=== PATIENT | male | born 1945 | race Caucasian/White ===

== ENCOUNTER 2018-09-10 01:40 | Inpatient (IN) ==
[2018-09-10] MEDS ORDERED: SOLU-MEDROL IV ONE (02:03)
[2018-09-10 02:26] LABS: HEMATOCRIT 42.6 % (42.0-52.0); HEMOGLOBIN 14.2 g/dL (14.0-18.0); MCH 31.6 PG (27-31); MCHC 33.3 g/dL (33-37); PLT 151 X1000 (130-400); RDW 13.4 % (11.5-14.5)
[2018-09-10 02:36] LABS: BASO# 0.03 X1000 (0.0-0.2); BASO% 0.4 % (0.0-0.8); EOS# 0.25 X1000 (0.0-0.7); LYMPH# 1.65 X1000 (1.2-3.4); MCV 94.9 FL (81-99); MONO# 1.02 X1000 (0.11-0.59); MONO% 12.3 % (1.7-9.3); MPV 9.5 FL (7.4-10.4); NEUT# 5.31 X1000 (1.4-6.5); NEUT% 64.3 % (42.2-75.2); RBC 4.49 XMIL (4.7-6.1); WBC 8.26 X1000 (4.8-10.8)
[2018-09-10 02:42] LABS: AGAP 12; ALB/GLOB RATIO 1.5; ALBUMIN 4.2 g/dL (3.5-5.0); ALKALINE PHOSPHATASE 94 U/L (32-122); BUN 20 mg/dL (8-22); CALCIUM 8.1 mg/dL (8.8-10.2); CHLORIDE 104 mmol/L (98-107); COSMO 288; CREATININE 0.7 mg/dL (0.7-1.2); ESTIMATED GFR > 60; GLUCOSE 108 mg/dL (70-104); GOT 30 U/L (10-34); GPT 27 U/L (10-44); POTASSIUM 4.6 mmol/L (3.5-5.1); SODIUM 143 mmol/L (136-145); TCO2 27 mmol/L (25-35); TOTAL BILIRUBIN 0.18 mg/dL (0.20-1.00)
[2018-09-10 02:45] LABS: ALLEN TEST YES; BE 0.5 mmoll (-3.0-3.0); BLOOD TYPE ARTERIAL; HCO3-(ACT) 25.3 mmoll (20.0-26.0); O2(CT) 19.3 mL/dL (15.0-23.0); PO2(98.6) 103 mmHg (60-100); SAMPLE BLOOD; SAO2 98.4 % (95.0-100.0); THB 14.2 g/dL (11.5-17.4); pH(98.6) 7.33 (7.35-7.45)
[2018-09-10 02:51] LABS: MODALITY CANNULA; PCO2(98.6) 52 mmHg (35-45)
--- NOTE | 2018-09-10 03:24 | PROVIDER DOCUMENTATION ---
HPI-Respiratory General - General Chief Complaint: Shortness of Breath Stated Complaint: sob Time Seen by Provider: 09/10/18 02:00 Source: patient Allergies/Adverse Reactions: Patient Allergies Allergy/AdvReac Type Severity Reaction Status Date / Time No Known Allergies Allergy Verified 01/02/14 10:37 Home Medications: Home Medication List Medication Instructions Recorded Confirmed Last Taken Type Tiotropium [place] Inhaler 1 cap IH DAILY 01/02/14 09/10/18 09/09/18 History [Spiriva] Albuterol Sulfate [Proair Hfa] 2 puff IH Q4H PRN PRN 09/10/18 09/10/18 09/10/18 01:30 History Albuterol [Albuterol Neb] 2.5 mg INH Q4H PRN PRN 09/10/18 09/10/18 09/10/18 01: 00 History Fluticasone/Salmet 250/50 INH 1 puff IH BID 09/10/18 09/10/18 09/10/18 01:30 History [Advair 250/50 Diskus] - History of Present Illness-Resp Nature of Presenting Problem: Pt c/o SOB for the past 2 days progressively worse and states that his COPD has flaired up. EMS notes that pt was hypoxic on arrival with sats in the 60's but family had removed his oxygen trying to get him to car. Quality of Pain: reports: none Severity in ED: reports: moderate Onset/Duration: reports: 2 days ago Timing: reports: still present, getting worse Context: reports: other (copd) Exposure: reports: unknown cause Cough Quality/Degree: reports: mild Episode Frequency: chronic episodes Current Respiratory Medication Therapy: Initiated see nurses note, Initiated A/ A nebulizer Modifying Factors: improves with: exertion, coughing Associated Symptoms: reports: cough, shortness of breath. denies: chest pain/ soreness Similar Symptoms Previously?: Yes Recently seen or treated by another doctor?: No Review of Systems - Adult - REVIEW OF SYSTEMS - ADULT Constitutional: reports: no symptoms reported, see HPI Eyes: reports: no symptoms reported, see HPI Ears, Nose, Mouth & Throat: reports: no symptoms reported, see HPI Cardiovascular: reports: no symptoms reported, see HPI Respiratory: reports: see HPI, cough, dyspnea on exertion, shortness of breath Gastrointestinal: reports: no symptoms reported, see HPI Genitourinary: reports: see HPI Musculoskeletal: reports: no symptoms reported, see HPI Integumentary: reports: no symptoms reported, see HPI Neurological: reports: no symptoms reported, see HPI Psychiatric: reports: see HPI Endocrine: reports: no symptoms reported, see HPI Hematologic/Lymphatic: reports: no symptoms reported, see HPI Allergic/Immunologic: reports: no symptoms reported, see HPI All Other Systems: Reviewed and Negative Past History - Adult - PAST MEDICAL HISTORY-ADULT Review of Records: reports: Nursing Assessment Review, Medications Reviewed, Social history reviewed & non-contributory. Major Childhood Illnesses: reports: denies history Cardiovascular: reports: denies history Respiratory: reports: COPD Gastrointestinal: reports: denies history Obstetrical/Gynecological: reports: denies history Genitourinary: reports: denies history Musculoskeletal: reports: denies history Neurological: reports: denies history Endocrine/Immune: reports: denies history Other Conditions: reports: denies history - FAMILY HISTORY Family History: reviewed, not pertinent Physical Exam-General - PHYSICAL EXAM-ADULT Initial Vital Signs Reviewed: Yes - CONSTITUTIONAL General Appearance: appears well, alert, mild distress - EYES Eyes: PERRL/EOMI - HEAD, EARS, NOSE, MOUTH & THROAT HENMT: normocephalic/atraumatic, moist mucous membranes, normal ENT inspection - NECK Neck: non-tender, full range of motion, supple, normal inspection - RESPIRATORY Respiratory: chest non-tender, respiratory distress, decreased breath sounds, accessory muscle use, wheezing - CARDIOVASCULAR Cardiovascular: normal peripheral pulses, regular rate, rhythm, no edema, no gallop, no JVD, no murmur - GASTROINTESTINAL (ABDOMEN) Abdominal Exam: normal bowel sounds, non tender, soft, no organomegaly, no pulsatile mass - LYMPHATIC Lymphatic: no adenopathy - MUSCULOSKELETAL Back Exam: normal inspection, no CVA tenderness, no vertebral tenderness Extremity: normal range of motion, non-tender, normal gait, normal inspection, no pedal edema, no calf tenderness, normal capillary refill - SKIN Integumentary: normal color, normal turgor, warm/dry - NEUROLOGIC 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, grossly normal, no motor/sensory deficits - PSYCHIATRIC Psych/Mental Status: normal mood/affect, normal thought content, normal thought process, oriented x 3 Progress - PLAN OF CARE/RESULTS Progress/Plan/Lab Results: Vital Signs - 8 hr 09/10/18 01:52 09/10/18 01:54 09/10/18 02:00 Pulse Rate 96 H 94 H 92 H Respiratory Rate 24 22 19 Blood Pressure 137/91 O2 Sat by Pulse Oximetry 96 09/10/18 02:03 09/10/18 02:10 09/10/18 02:20 Pulse Rate 101 H 83 86 Respiratory Rate 19 22 19 Blood Pressure 118/79 O2 Sat by Pulse Oximetry 96 100 100 09/10/18 02:30 09/10/18 02:33 09/10/18 02:34 Pulse Rate 85 85 84 Respiratory Rate 19 27 H 18 Blood Pressure 132/81 O2 Sat by Pulse Oximetry 100 100 100 09/10/18 02:40 09/10/18 02:45 09/10/18 02:50 Pulse Rate 83 78 86 Respiratory Rate 21 20 17 Blood Pressure O2 Sat by Pulse Oximetry 100 99 96 09/10/18 03:00 09/10/18 03:03 09/10/18 04:00 Pulse Rate 87 88 89 Respiratory Rate 19 20 16 Blood Pressure 151/91 151/91 O2 Sat by Pulse Oximetry 97 96 90 L 09/10/18 04:10 09/10/18 04:20 09/10/18 04:30 Pulse Rate 84 88 83 Respiratory Rate 24 22 20 Blood Pressure O2 Sat by Pulse Oximetry 94 L 93 L 94 L 09/10/18 04:40 09/10/18 04:50 09/10/18 05:00 Pulse Rate 81 83 88 Respiratory Rate 19 19 27 H Blood Pressure O2 Sat by Pulse Oximetry 96 97 94 L 09/10/18 05:02 09/10/18 05:03 Pulse Rate 81 84 Respiratory Rate 19 17 Blood Pressure 126/81 139/80 O2 Sat by Pulse Oximetry 94 L 94 L Laboratory Results - last 24 hr 09/10/18 09/10/18 09/10/18 02:00 02:00 02:00 WBC 8.26 RBC 4.49 L Hgb 14.2 Hct 42.6 MCV 94.9 MCH 31.6 H MCHC 33.3 RDW Std Deviation 13.4 Plt Count 151 MPV 9.5 Neut % (Auto) 64.3 Lymph % (Auto) 20.0 L [place] % (Auto) 12.3 H Eos % (Auto) 3.0 Baso % (Auto) 0.4 Neut # (Auto) 5.31 Lymph # (Auto) 1.65 [place] # (Auto) 1.02 H Eos # (Auto) 0.25 Baso # (Auto) 0.03 Specimen Type Sample Site pH pCO2 pO2 HCO3 Base Excess Oxyhemoglobin ABG O2 Sat (Calculated) ABG O2 Saturation ABG Carboxyhemoglobin ABG Methemoglobin Dylon Test A-a O2 Difference Total Hemoglobin Lactate Liter Flow Blood Gas Modality FiO2 % Sodium 143 Potassium 4.6 Chloride 104 Carbon Dioxide 27 Anion Gap 12 BUN 20 Creatinine 0.7 Estimated GFR/1.73 m2 > 60 BUN/Creatinine Ratio 29 Glucose 108 H Calculated Osmolality 288 Calcium 8.1 L Total Bilirubin 0.18 L AST 30 ALT 27 Alkaline Phosphatase 94 Troponin T < 0.010 Total Protein 7.0 Albumin 4.2 Globulin 2.8 Albumin/Globulin Ratio 1.5 09/10/18 02:35 WBC RBC Hgb Hct MCV MCH MCHC RDW Std Deviation Plt Count MPV Neut % (Auto) Lymph % (Auto) [place] % (Auto) Eos % (Auto) Baso % (Auto) Neut # (Auto) Lymph # (Auto) [place] # (Auto) Eos # (Auto) Baso # (Auto) Specimen Type ARTERIAL Sample Site R RADIAL pH 7.33 L pCO2 52 H* pO2 103 H HCO3 25.3 Base Excess 0.5 Oxyhemoglobin 96.0 ABG O2 Sat (Calculated) 19.3 ABG O2 Saturation 98.4 ABG Carboxyhemoglobin 1.40 ABG Methemoglobin 1.0 Dylon Test YES A-a O2 Difference 60.0 Total Hemoglobin 14.2 Lactate 0.50 Liter Flow 3.0 Blood Gas Modality CANNULA FiO2 % 32.0 Sodium Potassium Chloride Carbon Dioxide Anion Gap BUN Creatinine Estimated GFR/1.73 m2 BUN/Creatinine Ratio Glucose Calculated Osmolality Calcium Total Bilirubin AST ALT Alkaline Phosphatase Troponin T Total Protein Albumin Globulin Albumin/Globulin Ratio Orders Category Date Time Status Oxygen Therapy- ED Nursing DIRECTED Care 09/10/18 01:53 Active CHEST-1 VIEW [RAD] Stat Exams 09/10/18 02:01 Taken ABG [RESP] Routine Lab 09/10/18 02:35 Completed CBC WITH ELECTRONIC DIFF [HEME] Stat Lab 09/10/18 02:00 Completed COMPREHENSIVE METABOLIC PANEL [CHEM] Stat Lab 09/10/18 02:00 Completed TROPONIN T Stat Lab 01/23/19 02:00 Completed Methylprednisolone Sod Succ [Solu-Medrol] Med 09/10/18 02:03 Discontinued 125 mg IV NOW ONE Aerosol Treatments Stat Oth 09/10/18 01:53 Completed Asthma/COPD (Adult) Stat Oth 09/10/18 01:52 Ordered EKG [EKG] Stat Ther 09/10/18 02:02 Ordered Result Diagrams: 09/10/18 02:00 09/10/18 02:00 - EKG 1 Time of EKG reading by physician:: 01:44 EKG Read and Signed by:: Chico Delarosa EKG Interpretation (*Must complete 3 of following elements*): Normal Rate: 94 Rhythm: normal [place]: normal QRS: normal [place] Interval: normal ST Wave: normal Comments: normal EKG - XRAY 1 XRAY Study: Chest Impression: Abnormal Comparison with other Films: no prior study (2 Lt lung masses. No pneumothorax.) - CONSULTS/PCP/HOSPITALIST Notification #1 *Consult/PCP/Hospitalist*: Dr Hankins Time Discussed: 05:19 Consult Disposition: Will see in ED, Admit Departure - Departure Date of Disposition Decision: 09/10/18 Time of Disposition Decision: 05:19 DIAGNOSIS: COPD exacerbation, Mass of left lung Disposition: ADMITTED INPATIENT 09 Certified Medical Emergency: Emergent Condition: Fair - Critical Care Note This patient required my direct & personal management of CC.: No Attestation - Physician/ JEAN Attestation Patient care was provided by Advanced Practice Provider:: No The physician spent face to face time with patient:: Yes Advanced Practice Provider documentation review:: Supervising physician onsite and consulted in the evaluation and care of this patient. The physician did have a face to face encounter with the patient.
[2018-09-10] MEDS: PRILOSEC PO SCH (06:34)
--- NOTE | 2018-09-10 07:06 | Diag Imaging Result Doc PS360 ---
EXAM: CHEST-1 VIEW HISTORY: sob TECHNIQUE: Chest single view COMPARISON: 01/02/2014 FINDINGS: The lungs are hyperexpanded. No cardiomegaly. There are scattered granuloma. No pleural effusions identified. No consolidation. Mild increased interstitial markings. Old injury to the right clavicle. IMPRESSION: Emphysema with fibrosis Electronically signed by Tai Morrell 09/10/2018 7:04 AM
--- NOTE | 2018-09-10 07:12 | EKG Report ---
Test Performed on : 09/10/2018 01:44:05 AM Test Reason : SOB Blood Pressure : / mmHG Vent. Rate : 094 BPM Atrial Rate : 094 BPM P-R Int : 156 ms QRS Dur : 074 ms QT Int : 350 ms P-R-T Axes : 080 063 040 degrees QTc Int : 437 ms Normal sinus rhythm. Normal ECG No previous ECGs available Unconfirmed Result
[2018-09-10] MEDS: DUONEB (A & A) INH SCH ×5 (07:20→23:33)
--- NOTE | 2018-09-10 08:31 | HISTORY AND PHYSICAL ---
HISTORY OF PRESENT ILLNESS: Mr. Patricio Ayers is a 71-year-old male who has a history of COPD and presents to the hospital because of shortness of breath which has been ongoing for the last 5 to 6 days. He has had associated nonproductive cough as well as wheezing. The patient denies cigarette smoking. He was seen and evaluated in the ER and will be admitted to the floor for further management. Of note, the patient indicates that he does have possible left lung mass. PAST MEDICAL HISTORY: COPD. SOCIAL HISTORY: No cigarette smoking. No drug use, but alcohol occasionally. ALLERGIES: No known drug allergies. PAST SURGICAL HISTORY: He has had right wrist surgery. FAMILY HISTORY: Positive for diabetes. ALLERGIES: No known drug allergies. MEDICATIONS: 1. Spiriva inhaler 1 daily. 2. ProAir 2 puffs every 4 hours p.r.n. 3. Albuterol nebulizer every 4 hours p.r.n. 4. Advair 250/50 one puff twice a day. REVIEW OF SYSTEMS: Constitutional: Not sure of a fever. 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 Eyes: He has glasses. ENT: Hearing loss right ear. Cardiovascular: No chest pain. GI: No nausea, vomiting, diarrhea, or constipation. No abdominal pains. Psychiatric: No anxiety or depression. Musculoskeletal: He has joint pain. Endocrinology: No diabetes or thyroid disease. Allergies/dermatology: No symptoms suggestive of allergic rhinitis. Dermatologic: No bleeding problems. PHYSICAL EXAMINATION: VITAL SIGNS: Pulse 86, respiratory rate is 24, blood pressure 137/91, oxygen saturation is 96%. HEENT: Atraumatic, normocephalic. Extraocular movements intact. No oral lesions. NECK: No lymphadenopathy or thyromegaly. CARDIOVASCULAR: Distant heart sounds. RESPIRATORY SYSTEM: Decreased air entry bilaterally. ABDOMEN: Soft, nontender. No masses felt. EXTREMITIES: No evidence of edema. CENTRAL NERVOUS SYSTEM: No obvious focal deficits noted. LABORATORIES: WBC 8.26, hematocrit is 42.6 with a platelet count of 151,000. Sodium is 143, potassium 4.6, chloride is 104, bicarb 27, BUN is 20, creatinine 0.7. ABG 7.33/42/103/98.4%. DIAGNOSTIC DATA: EKG normal. X-ray of the chest shows two left lung masses. No pneumothorax. ASSESSMENT AND PLAN: This is a 71-year-old male who presents to the hospital because of cough, shortness of breath as well as wheezing. He is noted to have two lung masses on chest x-ray. 1. Chronic obstructive pulmonary disease exacerbation. Maintain patient on nebulized bronchodilators, steroids, as well as antibiotics. Follow up on the patient's respiratory status including chest x-ray as well as arterial blood gases. 2. Lung masses. Etiology not clear. We will get a CT scan of the chest and also consult with pulmonology for further evaluation. 3. Deep vein thrombosis prophylaxis. Lovenox. 4. Gastrointestinal prophylaxis. PPI. cc: Mauro Madison MD
[2018-09-10] MEDS: SOLU-MEDROL IV SCH ×2 (09:23→18:27)
[2018-09-10] MEDS: LEVAQUIN PO SCH (09:25)
[2018-09-11] MEDS: SOLU-MEDROL IV SCH ×4 (01:31→20:07)
[2018-09-11] MEDS: DUONEB (A & A) INH SCH ×6 (03:30→23:05)
[2018-09-11] MEDS: PRILOSEC PO SCH ×2 (05:33→07:32)
[2018-09-11 05:38] LABS: ALLEN TEST YES; BLOOD TYPE ARTERIAL; HCO3-(ACT) 27.2 mmoll (20.0-26.0); METHB 0.8 % (0.0-1.5); PCO2(98.6) 49 mmHg (35-45); PO2(98.6) 90 mmHg (60-100); SAMPLE BLOOD; SAO2 98.5 % (95.0-100.0); THB 13.3 g/dL (11.5-17.4); pH(98.6) 7.38 (7.35-7.45)
[2018-09-11 05:41] LABS: MODALITY CANNULA
--- NOTE | 2018-09-11 05:52 | PULMONOLOGY CONSULTATION ---
DATE: 09/10/2018 REQUESTING PHYSICIAN: Dr. Madison. REASON FOR CONSULTATION: Lung mass. HISTORY OF PRESENT ILLNESS: Mr. Ayers is a 72-year-old with COPD, hypoxemic respiratory failure, and prior asbestos exposure who presented to the emergency room with a 4-5 day history of increasing wheeze with increased shortness of breath. He has felt warm but has not checked his temperature. He denies any sick contact. He has not had recent tobacco use. 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 He is aware that he has spots on his lungs, likely related to asbestos exposure. PAST MEDICAL HISTORY/PROBLEM LIST: 1. COPD with chronic hypoxemic respiratory failure. 2. History of prior wrist surgery. SOCIAL HISTORY: The patient has a greater than 50 pack year history for tobacco. He has been a nonsmoker for several years. Occasional alcohol use. FAMILY HISTORY: Positive for diabetes. REVIEW OF SYSTEMS: As noted in the HPI, but is otherwise negative. PHYSICAL EXAMINATION: General: Reveals a thin, frail, chronically ill-appearing male who has mild dyspnea with speech. He has evidence of mild work of breathing. Vital Signs: Blood pressure 129/83, heart rate 89, respiratory rate 23, oxygen saturations 94%. HEENT: Pupils are equal and reactive. Oropharynx is clear. Neck: Supple. Chest: Reveals prolonged expiratory phase with diffuse wheezing throughout all lung singh. Cardiac Examination: Distant heart sounds. Normal S1, normal S2. Abdomen: Soft and without hepatosplenomegaly. Extremities: Reveal trace pretibial edema. LABORATORIES: Chest x-ray reveals evidence of pleural plaques bilaterally. Previous CT scan in 2013 revealed bilateral pleural plaques affecting the lungs and the diaphragm. White blood count 8.26, hemoglobin 14.2, platelet count 159,000. Arterial blood gas reveals a pH of 7.33, pCO2 of 52, PO2 of 103. IMPRESSION: A 72-year-old with severe chronic obstructive pulmonary disease who presents with a chronic obstructive pulmonary disease exacerbation, acute on chronic hypoxemic respiratory failure, acute hypercapnic respiratory failure with audible wheezing. The patient has had asbestos exposure and findings on chest x-ray are consistent with pleural plaques. No definite masses are identified on his plain x-rays. CT scan of the thorax is pending. RECOMMENDATIONS: 1. Continue treatment for COPD exacerbation as you are doing. 2. Review CT scan after it has been completed. Previous CT scan in 2014 reconfirmed previous diagnosis of pleural plaques. cc: Patricio Falcon MD
[2018-09-11 06:20] LABS: BASO# 0.01 X1000 (0.0-0.2); BASO% 0.1 % (0.0-0.8); HEMOGLOBIN 13.8 g/dL (14.0-18.0); LYMPH# 0.61 X1000 (1.2-3.4); LYMPH% 8.1 % (20.5-51.1); MCH 31.7 PG (27-31); MCHC 33.7 g/dL (33-37); MONO# 0.29 X1000 (0.11-0.59); MONO% 3.9 % (1.7-9.3); MPV 9.4 FL (7.4-10.4); NEUT# 6.61 X1000 (1.4-6.5); NEUT% 87.9 % (42.2-75.2); PLT 201 X1000 (130-400); RBC 4.36 XMIL (4.7-6.1); RDW 13.1 % (11.5-14.5); WBC 7.52 X1000 (4.8-10.8)
[2018-09-11 06:29] LABS: AGAP 11; BUN 21 mg/dL (8-22); CALCIUM 8.5 mg/dL (8.8-10.2); CHLORIDE 101 mmol/L (98-107); COSMO 287; CREATININE 0.8 mg/dL (0.7-1.2); ESTIMATED GFR > 60; GLUCOSE 141 mg/dL (70-104); POTASSIUM 4.5 mmol/L (3.5-5.1); SODIUM 141 mmol/L (136-145); TCO2 29 mmol/L (25-35)
[2018-09-11 06:38] LABS: BANDS 2 % (0-1); LYMPHS 12 % (21-51); SEGS 86 % (42-75)
[2018-09-11] MEDS: LOVENOX SUBQ SCH (08:16)
[2018-09-11] MEDS: LEVAQUIN PO SCH (08:17)
--- NOTE | 2018-09-11 09:13 | Diag Imaging Result Doc PS360 ---
EXAM: CT THORAX W/CONTRAST INDICATION: lung mass TECHNIQUE: This exam was performed using automated exposure control, adjustment of mA or kV according to patient size, and/or use of iterative reconstruction technique. COMPARISON: 01/12/2014 FINDINGS: There is advanced pulmonary emphysema. It is similar to the previous study. There are several stable calcified pleural plaques bilaterally with bulky plaques at the lung bases suggesting possible prior asbestos exposure. There is a small calcified granuloma in the left upper lobe. There is very mild consolidation at the right lower lobe near the base that includes a few small tree-in-bud opacities, likely infectious. There is no pleural fluid collection and no pneumothorax. There is no cardiomegaly. No significant mediastinal or hilar lymphadenopathy is appreciated. Limited views of the upper abdomen are essentially unremarkable. IMPRESSION: 1.Stable COPD changes and stable calcified pleural plaques bilaterally. 2.Subtle mild airspace consolidation in the right lower lobe suggesting mild pneumonitis, probably infectious. Electronically signed by Khris Michael 09/11/2018 9:10 AM
--- NOTE | 2018-09-11 18:42 | PROGRESS NOTE ---
DATE: 09/11/2018 SUBJECTIVE: This patient is feeling better. He is not wheezing today, but he is feeling short of breath. He uses oxygen at home, but mostly during the night. CT scan showed stable COPD changes and stable calcified pleural plaques bilaterally. Some airspace consolidation in the right lower lobe suggesting mild pneumonitis and/or infectious process. This patient has been placed on antibiotics. He is getting treatment for his COPD exacerbation. Pulmonary department is on board. I believe this patient can be discharged in the next 24 hours. OBJECTIVE: Vital Signs: Temperature 98.1, pulse 86, respiratory rate 18, blood pressure 137/75, oxygen saturation 95% on 3 liters of nasal cannula. HEENT: Head normocephalic. No trauma. PERRLA. Neck: Supple. No JVD. No masses. Central trachea. Chest: Decreased breath sounds globally with prolonged expiratory phase and some crepitus at the bases. Abdomen: Soft and nontender. No hepatosplenomegaly. Extremities: No edema. No clubbing. No cyanosis. Neurologic: The patient is alert. He is oriented x3. No focal deficits. LABORATORY DATA: WBCs 7.5, hemoglobin 13.8, hematocrit 41, platelets 201. Sodium 141, potassium 4.5, chloride 101. Bicarbonate 29, BUN 21, creatinine 0.8, glucose 141, calcium 8.5. ASSESSMENT/PLAN: 1. Chronic obstructive pulmonary disease exacerbation. Continue with breathing treatments, steroids, which I have decreased, antibiotics, oxygen supplementation and pulmonary toilet. This patient had a CT scan which showed stable pleural plaques bilaterally and chronic obstructive pulmonary disease changes, also mild airspace consolidation in the right lower lobe suggesting mild pneumonitis and probably infectious process. Pulmonary department on board. 2. Deep venous thrombosis with Lovenox. 3. History of cigarette smoking, which he has stopped, I believe in the . 4. Acute on chronic hypoxemic respiratory failure and acute hypercapnic respiratory failure due to chronic obstructive pulmonary disease exacerbation. This is getting better cc: Darrell Marks MD
--- NOTE | 2018-09-12 01:33 | PULMONOLOGY PROGRESS NOTE ---
DATE: 09/11/2018 SUBJECTIVE: The patient reports he is feeling better. He has wheezing and reports dyspnea with movement but this has markedly improved compared to admission. OBJECTIVE: Vital Signs: BP 127/73, heart rate 86, respiratory rate 20, oxygen saturation 95% on 3 L per nasal cannula. HEENT: Pupils are equal and reactive. Oropharynx is clear. Neck: Supple. Chest: Reveals prolonged expiratory phase with faint distant wheezing. Cardiac: S1 and S2. Abdomen: Soft and without hepatosplenomegaly. Extremities: Without edema. LABORATORY DATA: Sputum culture is pending. Arterial blood gas reveals a pH of 7.38, pCO2 of 49, PO2 of 90 on 3 L per nasal cannula. Sodium 141, potassium 4.5 chloride 101, bicarbonate 29, BUN 21, creatinine 0.8. CT scan of the thorax reveals evidence of prior calcified pleural plaques, severe COPD, minimal/trace infiltrate at the right lung base. IMPRESSION: A 72-year-old with severe chronic obstructive pulmonary disease, chronic obstructive pulmonary disease exacerbation, minor pneumonia, [id number] hypoxemic respiratory failure, acute hypercapnic respiratory failure, with significant clinical improvement. RECOMMENDATIONS: 1. Continue treatment for COPD exacerbation. 2. Continue antibiotics for minor pneumonia. 3. Anticipate discharge in the next 24-72 hours if he has ongoing clinical improvement. cc: Patricio Falcon MD
[2018-09-12] MEDS: DUONEB (A & A) INH SCH ×4 (03:40→16:21)
[2018-09-12] MEDS: PRILOSEC PO SCH ×2 (05:33→06:27)
[2018-09-12 10:03] LABS: AGAP 9; BUN 21 mg/dL (8-22); CALCIUM 8.5 mg/dL (8.8-10.2); CHLORIDE 101 mmol/L (98-107); COSMO 284; CREATININE 0.7 mg/dL (0.7-1.2); ESTIMATED GFR > 60; GLUCOSE 102 mg/dL (70-104); POTASSIUM 4.2 mmol/L (3.5-5.1); SODIUM 141 mmol/L (136-145); TCO2 31 mmol/L (25-35)
[2018-09-12] MEDS: LOVENOX SUBQ SCH (10:46)
[2018-09-12] MEDS: SOLU-MEDROL IV SCH (10:46)
[2018-09-12] MEDS: LEVAQUIN PO SCH (10:46)
[2018-09-12 16:07] VITALS: BP 131/65
--- NOTE | 2018-09-13 02:16 | DISCHARGE SUMMARY ---
ADMISSION DATE: 09/10/2018 DISCHARGE DATE: 09/12/2018 DISCHARGE DIAGNOSES: 1. [id number] hypoxemic and hypercapnic, respiratory failure. 2. Chronic obstructive pulmonary disease exacerbation. 3. History of tobacco abuse. HOSPITAL COURSE: A 72-year-old male with a past medical history of COPD, admitted on 09/10/2018, who presented to the hospital with shortness of breath that has been going on for at least 5-6 days prior to the admission, associated with a dry cough and wheezing. He denies nausea, vomiting, diarrhea, constipation, chest pain, fever, or chills. He was placed on oxygen breathing treatment, steroids as well. Chest x-ray over admission showed emphysema with fibrosis. Chest CT showed stable COPD changes and stable calcified pleural plaques bilaterally, with some right lower lobe suggesting mild pneumonitis and/or infectious process. The patient has been evaluated by Pulmonary Department, who recommended basically to continue with the same management. Today, this patient is feeling much better. He will be discharged home with home oxygen. He will need to follow up with Pulmonary Department as an outpatient in 1 to 2 weeks. Also, follow up with his primary care doctor in 1 week. Upon discharge, the patient was in a stable medical condition, tolerating p.o., and ambulating. PHYSICAL EXAMINATION: Vital Signs: Temperature 98 degrees, pulse 54, respiratory rate 18, blood pressure 137/82, oxygen saturation 95 on 3 L of nasal cannula. HEENT: Head normocephalic. No trauma. PERRLA. Neck: Supple. No JVD. No masses. Central trachea. Chest: Decreased breath sounds globally, with prolonged expiratory phase. Some crepitus at the bases. Abdomen: Soft, nontender, nondistended. No hepatosplenomegaly. Extremities: No edema. No clubbing. No cyanosis. Neurological: The patient is alert and oriented x3. No focal deficits. LABORATORY STUDIES: Sodium 141, potassium 4.2, chloride 101, bicarbonate 31, BUN 21, creatinine 0.7, glucose 102, calcium 8.5. DISCHARGE MEDICATIONS: 1. Spiriva 1 inhalation daily. 2. Advair 250/50 Diskus, 1 puff inhaler b.i.d. 3. Albuterol nebulizer every 4 hours as needed. 4. ProAir HFA 2 puffs inhaler q.4 hours as needed, shortness of breath. 5. Medrol Dosepak 4 mg p.o. as directed. 6. Levofloxacin 500 mg p.o. daily for 5 more days. TIME DISCHARGING THIS PATIENT: 35 minutes. cc: Darrell Marks MD
== END 2018-09-12 17:50 | disposition home or self-care (01) | DRG 190 ==
LOC: ED 01:40 → EDIPHOLD 07:11 → SUATTDRO 07:11 → 4N 09-11 00:24
PROVIDERS: ATTEND Internal Medicine
CPT/HCPCS: 71010; 71045; 71260; 80048; 80053; 82550; 82805; 83880; 84484; 85025; 87070; 87205; 93005; 94640; 94761; 96372; 96374; 99285; A9270; J1650; J2920; J2930; Q9967